=== PATIENT | female | born 1995 | race Caucasian/White ===

== ENCOUNTER 2025-03-11 04:59 | Inpatient (IN) | payer OTHER ==
[~2025-03-11] VITALS: Ht 157.5 cm; Wt 83.5 kg
[2025-03-11] MEDS ORDERED: OXYTOCIN/0.9 % SODIUM CHLORIDE 30 UNITS/500 ML BAG IV SCH (05:45)
[2025-03-11] MEDS ORDERED: MAGNESIUM HYDROXIDE/AL HYDROX 30 ML CUP PO PRN ×2 (05:45→16:00)
[2025-03-11] MEDS ORDERED: TERBUTALINE SULFATE 1 MG/ML AMP SUB-Q PRN (05:45)
[2025-03-11] MEDS ORDERED: CALCIUM CARBONATE 500 MG CHEW PO PRN ×2 (05:45→16:00)
[2025-03-11] MEDS ORDERED: LIDOCAINE HCL 1% 30 ML SDV INJ PRN (05:45)
[2025-03-11] MEDS ORDERED: LACTATED RINGER'S 1,000 ML IV PRN (05:45)
[2025-03-11] MEDS ORDERED: LACTATED RINGER'S 1,000 ML IV SCH (05:45)
[2025-03-11 06:24] LABS: MCH 30.6 PG (25.6-32.2); MCHC 34.1 g/dL (32.2-35.5); MCV 89.7 fL (79.4-94.8); RBC 3.99 M/uL (3.93-5.22)
[2025-03-11 06:33] VITALS: BP 130/69
[2025-03-11 06:40] LABS: AMPHETAMINES, URINE NEGATIVE (NEGATIVE); BARBITURATES, URINE NEGATIVE (NEGATIVE); BENZODIAZEPINE, URINE NEGATIVE (NEGATIVE); CANNABINOID, URINE NEGATIVE (NEGATIVE); COCAINE, URINE NEGATIVE (NEGATIVE); ECSTASY, URINE NEGATIVE (NEGATIVE); FENTANYL, URINE NEGATIVE (NEGATIVE); METHADONE, URINE NEGATIVE (NEGATIVE); OPIATES, URINE NEGATIVE (NEGATIVE); OXYCODONE, URINE NEGATIVE (NEGATIVE); PHENCYCLIDINE, URINE NEGATIVE (NEGATIVE)
[2025-03-11 07:00] LABS: ABO A; ANTIBODY SCREEN NEGATIVE; RH POSITIVE
[2025-03-11] MEDS ORDERED: ROPIVACAINE 0.2% 200 ML BAG ONE (12:23)
[2025-03-11] MEDS ORDERED: fentaNYL citrate 100 MCG/2 ML VIAL ONE (12:23)
[2025-03-11] MEDS ORDERED: LACTATED RINGER'S 500 ML IV PRN (13:00)
[2025-03-11] MEDS ORDERED: LACTATED RINGER'S 2,000 ML IV ONE (13:00)
[2025-03-11] MEDS ORDERED: ROPIVACAINE 0.2% 200 ML BAG EPIDURAL SCH (13:00)
[2025-03-11] MEDS ORDERED: ePHEDrine sulfate 5 MG/ML SYRINGE IV PRN (13:00)
--- NOTE | 2025-03-11 14:08 | PR ---
[facility] [address], [place] [address] Signed Progress Notes IP Datetime Report Generated by ALPA: 03/11/2025 14:08 PROGRESS NOTES: [id number] Impression: Normal Progression of Labor; Reassuring Heart Rate Procedures: Artificial ROM; Sterile Vag Exam Plan: Continue Present Management; Anticipate Vaginal Delivery Informed Consent Obtain: Vaginal Delivery VITAL SIGNS: [id number] Vital Signs: Reviewed; Within Normal Limits EXAM: [id number] Dilatation: 8.0 Effacement: 100 Effacement: 80 Effacement: 80 Effacement: 80 Effacement: 80 Effacement: 80 Effacement: 80 Station: -2 Station: -2 Station: -2 Station: -2 Station: -2 Station: -2 Contractions: q 1-4 min MEMBRANES: [id number] Comments: Pt seen and examined. Doing well. Comfortable w/ epidural. Vertex well applied. Bulging bag. AROM easily performed for moderate amount of clear fluid. Mother and baby tolerated well. Anticpate soon FETUS A: [id number] FHR Baseline: 150 Variability: Moderate 6-25bpm Accelerations: 15X15 Decelerations: None FHR Category: Category I Comments on Fetus A: No evidence of metabolic acidosis FETUS B: [id number] Signing Physician: Sage Ortiz DO *Electronically Signed* 03/11/25 1408 SAGE ORTIZ (JT) DO PATIENT NAME: LORENA MITCHELL PROGRESS NOTE DATE OF : 94 PHYSICIAN: SAGE ORTIZ (JD) DO RPT #: [id number] REPORT IS CONFIDENTIAL AND NOT TO BE RELEASED WITHOUT AUTHORIZATION [facility] [address], [place] [address] Signed Copies: ~ *Electronically Signed* 03/11/25 1408 SAGE ORTIZ) DO PATIENT NAME: LORENA MITCHELL PROGRESS NOTE DATE OF : 94 PHYSICIAN: SAGE ORTIZ (JD) DO RPT #: [id number] REPORT IS CONFIDENTIAL AND NOT TO BE RELEASED WITHOUT AUTHORIZATION
[2025-03-11] MEDS ORDERED: HYDROCORTISONE ACETATE 25 MG SUPP PR PRN (16:00)
[2025-03-11] MEDS ORDERED: BENZOCAINE 60 ML AEROSOL TOP PRN (16:00)
[2025-03-11] MEDS ORDERED: MAGNESIUM HYDROXIDE 30 ML UDC PO PRN (16:00)
[2025-03-11] MEDS ORDERED: OXYTOCIN/0.9 % SODIUM CHLORIDE 500 ML IV SCH (16:00)
[2025-03-11] MEDS ORDERED: HYDROCODONE/ACETA 5/325 TAB PO PRN (16:00)
[2025-03-11] MEDS ORDERED: IBUPROFEN 600 MG TAB PO PRN (16:00)
[2025-03-11] MEDS ORDERED: ACETAMINOPHEN 325 MG TAB PO PRN (16:00)
[2025-03-11] MEDS ORDERED: WITCH HAZEL/GLYCERIN 1 EA PAD TOP PRN (16:00)
[2025-03-11] MEDS ORDERED: OXYCODONE/APAP 5/325 TAB PO PRN (16:00)
[2025-03-11] MEDS ORDERED: SENNOSIDES/DOCUSATE 1 EA TAB PO SCH (21:00)
[2025-03-12 05:44] LABS: MCH 31.1 PG (25.6-32.2); MCHC 34.5 g/dL (32.2-35.5); MCV 90.0 fL (79.4-94.8); RBC 3.7 M/uL (3.93-5.22)
--- NOTE | 2025-03-12 13:30 | PR ---
[facility] [address] [address] [place], [place] [address] Signed PP Progress Notes Datetime Report Generated by CPN: 03/12/2025 13:30 SUBJECTIVE: [id number] Pain: Within Normal Limits Nausea/Vomiting: Denies Flatus: Yes Bowel Movement: No Vital Signs: [id number] Vital Signs: Reviewed; Within Normal Limits Cardiovascular: Normal Respiratory: Normal Abdomen/Uterus: Normal Lochia: Normal Vulva/Perineum: Not Done Breasts: Not Done CVA Tenderness: Normal Extremities: Normal Incision: Not Applicable Progress: Normal Exam Comments: Fundus firm U-2 nontender IMPRESSION/PLAN/PROCEDURES: [id number] Impression: Normal Progression Plan: Discharge Progress Notes: Pt seen and examined. Doing well. Ambulating, voiding, and tolerating full diet. Pain and lochia minimal. well. No fever/chills or other concerns. Desires d/c home today. Reviewed d/c meds and instructions w/ pt and family. Planning vasectomy and condoms for pp contraception. F/U 2 wks. Signing Physician: Sage Ortiz DO Copies: ~ *Electronically Signed* 03/12/25 0705 SAGE ORTIZ (JT) DO PATIENT NAME: LORENA MITCHELL PROGRESS NOTE DATE OF : 94 PHYSICIAN: SAGE ORTIZ (JD) DO RPT #: [id number] REPORT IS CONFIDENTIAL AND NOT TO BE RELEASED WITHOUT AUTHORIZATION
== END 2025-03-12 16:48 | disposition home or self-care (01) | DRG 807 ==
LOC: FBCO 04:59 → FBC 05:40
PROVIDERS: ADMIT Obstetrics & Gynecology; ATTEND Obstetrics & Gynecology
PROC: 10E0XZZ Delivery of Products of Conception, External Approach (ICD-10-PCS; principal; 2025-03-11)
PROC: 3E0R3BZ Introduction of Anesthetic Agent into Spinal Canal, Percutaneous Approach (ICD-10-PCS; 2025-03-11)
PROC: 00HU33Z Insertion of Infusion Device into Spinal Canal, Percutaneous Approach (ICD-10-PCS; 2025-03-11)
DX: O69.81X0 Labor and delivery complicated by cord around neck, without compression, not applicable or unspecified (principal); Z37.0 Single live birth; O99.52 Diseases of the respiratory system complicating childbirth; J45.990 Exercise induced bronchospasm; Z3A.38 38 weeks gestation of pregnancy; Z79.899 Other long term (current) drug therapy
CPT/HCPCS: 01960; 36415; 80307; 85027; 85060; 86850; 86900; 86901; A9270; J2795; J3010; J7121